=== PATIENT | male | born 1990 ===

== ENCOUNTER 2017-06-18 11:24 | Emergency (ER) | payer OTHER ==
--- NOTE | 2017-06-18 13:10 | ED ---
General Adult HPI - General Chief complaint: Upper Respiratory Infection Stated complaint: Sob Time Seen by Provider: 06/18/17 12:47 Source: patient, RN notes reviewed Mode of arrival: ambulatory Limitations: no limitations - History of Present Illness Initial comments: Patient 26-year-old male who presents emergency room today with chief complaint cough congestion over the last 2 weeks. He does admit to positive sputum production that has been green and yellow in color. States that time he seems small amount of blood in the sputum. He states been a streak. Patient admits that he did have some body aches and chills. States only symptoms have improved but he still having a cough now for the last 2 weeks. He states that his mother advised come here to the emergency room rechecked states they're worried about influenza and pertussis. He does admit that he was now visiting some family members children were diagnosed with whooping cough. Patient denies any recent fever, chills, shortness of breath, chest pain, back pain, abdominal pain, nausea or vomiting, numbness or tingling, headaches or visual changes, or any other complaints. - Related Data Home Medications Medication Instructions Recorded Confirmed Biotin 5 mg PO DAILY 06/18/17 06/18/17 D-Methorphan/PE/Acetaminophen 2 cap PO Q6HR PRN 06/18/17 06/18/17 [Vicks Dayquil Liquicaps] Dm/Acetaminophen/Doxylamine [Vicks 2 cap PO Q6H PRN 06/18/17 06/18/17 Nyquil Liquicaps] Previous Rx's Medication Instructions Recorded Azithromycin [Zithromax Z-pack] 0 mg PO DIRECTED #6 tab 06/18/17 Allergies Allergy/AdvReac Type Severity Reaction Status Date / Time amoxicillin [Amoxicillin] Allergy Rash/Hives Verified 06/18/17 12:50 Review of Systems ROS Statement: Those systems with pertinent positive or pertinent negative responses have been documented in the HPI. ROS Other: All systems not noted in ROS Statement are negative. Past Medical History Past Medical History: No Reported History History of Any Multi-Drug Resistant Organisms: None Reported Past Surgical History: No Surgical Hx Reported Past Psychological History: No Psychological Hx Reported Smoking Status: Current every day smoker Past Alcohol Use History: Occasional Past Drug Use History: Marijuana General Exam - General Exam Comments Initial Comments: General: The patient is awake and alert, in no distress, and does not appear acutely ill. Eye: Pupils are equal, round and reactive to light, extra-ocular movements are intact. No nystagmus. There is normal conjunctiva bilaterally. No signs of icterus. Ears, nose, mouth and throat: There are moist mucous membranes and no oral lesions. Neck: The neck is supple, there is no tenderness or JVD. Cardiovascular: There is a regular rate and rhythm. No murmur, rub or gallop is appreciated. Respiratory: Lungs are clear to auscultation, respirations are non-labored, breath sounds are equal. No wheezes, stridor, rales, or rhonchi. Musculoskeletal: Normal ROM, no tenderness. Strength 5/5. Sensation intact. Pulses equal bilaterally 2+. Neurological: A&O x 3. CN II-XII intact, There are no obvious motor or sensory deficits. Coordination appears grossly intact. Speech is normal. Skin: Skin is warm and dry and no rashes or lesions are noted. Psychiatric: Cooperative, appropriate mood & affect, normal judgment. Limitations: no limitations Course Vital Signs 06/18/17 06/18/17 06/18/17 11:33 13:10 14:43 Temperature 98.0 F 98.4 F Pulse Rate 117 H 84 78 Respiratory 18 15 Rate Blood Pressure 154/90 125/65 117/62 O2 Sat by Pulse 95 99 93 L Oximetry Medical Decision Making - Medical Decision Making Patient reexamined at this time shows no signs of distress. Patient's chest x- rays negative for any acute abnormality. Results were discussed with the patient. Patient does have swab for pertussis pending will not be resulted today. Will be treated with azithromycin for her symptoms for cough congestion over the last 2 weeks. Is advised follow-up family doctor return here to the emergency room for any symptoms increase or worsen appropriate concerns. Patient states her stay and is in agreement. Disposition Clinical Impression: Acute bronchitis Disposition: HOME SELF-CARE Condition: Good Instructions: Acute Bronchitis (ED) Additional Instructions: Please use medication as discussed. Please follow-up with family doctor in the next 2 days of symptoms have not improved. Please return to emergency room if the symptoms increase or worsen or for any other concerns. Prescriptions: Azithromycin [Zithromax Z-pack] 0 mg PO DIRECTED #6 tab Referrals: Amor Henry MD [Primary Care Provider] - 1-2 days Time of Disposition: 15:09
[2017-06-18 13:11] VITALS: RESP 15; TEMP 98.4
[2017-06-18 14:45] VITALS: BP 117/62; PULSE 78
--- NOTE | 2017-06-18 15:20 | XR ---
EXAMINATION TYPE: XR chest 2V DATE OF EXAM: 06/18/2017 COMPARISON: NONE HISTORY: Shortness of breath TECHNIQUE: Frontal and lateral views of the chest are obtained. FINDINGS: There is no focal air space opacity, pleural effusion, or pneumothorax seen. The cardiac silhouette size is within normal limits. The osseous structures are intact. IMPRESSION: No acute cardiopulmonary process.
[2017-06-19 13:55] LABS: Bordedella pertussis Not detected (Not detected); Bordetella holmesII Not detected (Not detected); Bordetella parapertussis Not detected (Not detected)
== END 2017-06-18 15:27 | disposition home or self-care (01) ==
LOC: EC 11:24
DX: J20.9 Acute bronchitis, unspecified (principal); F17.200 Nicotine dependence, unspecified, uncomplicated; Z79.899 Other long term (current) drug therapy; Z88.0 Allergy status to penicillin
CPT/HCPCS: 71046; 87798; 99283